=== PATIENT | male | born 1945 | race Caucasian/White ===

== ENCOUNTER 2019-10-29 06:38 | Inpatient (IN) | payer MEDICARE ==
[~2019-10-29] VITALS: Ht 165.1 cm; Wt 81.6 kg
[~2019-10-29 06:38] MED LIST: ASPIR 8181 MG PO; CARAFATE1 GM PO; CEFUROXIME500 MG PO; CLONAZEPAM1 MG PO; COLACE100 M1 PO; COUMADIN3 MG PO; COUMADIN5 MG PO; DONEPEZIL HCL5 MG PO; EXALGO16 MG PO; FLOMAX0.4 MG PO; FOLIC ACID1 MG PO; IPRAT-ALBUT 0.5-3 ML; KLONOPIN1 MG PO; LEVOTHYROXINE75 MCG PO; LIPITOR20 MG; LOSARTAN POTAS100 MG PO; METOPROLOL SUC100 MG PO; NEURONTIN400 MG PO; NEXIUM40 MG PO; OXYCONTIN10 MG PO; PERCOCET 10-321 EACH PO; PLAVIX75 MG PO; PREDNISONE1 MG; RAPAFLO8 MG PO; TRICOR145 MG PO; WELLBUTRIN100 MG PO; XARELTO20 MG PO; Z.0.AMBIEN CR12.5 MG PO; Z.0.JANUMET XR 50-1 PO; Z.0.NORCO 10-325 T1 PO; Z.0.PANTOPRAZOLE SO4 PO; Z.0.SYNTHROID200 MCG PO; Z.0.TRILIPIX135 MG PO; Z.0.ZOLOFT100 MG PO
--- OUTSIDE RECORDS SUMMARY | 2019-10-29 06:41 | XMS REPORT ---
Author Author [facility] Address Unknown Phone Unavailable Care Team Providers Care Hop Weigher Name Role Phone RUDY QUACHSILVINO Unavailable Unavailable Cristina GHOSH Unavailable Unavailable Problems This patient has no known problems. Allergies, Adverse Reactions, Alerts This patient has no known allergies or adverse reactions. Medications This patient has no known medications. Results Test Description Test Time Test Comments Text Results Atomic Results Result Comments RAD, CHEST, 1 VIEW, NON DEPT 2019-04-11 09:51:00 Reason for exam:->ppmShould this be performed at the bedside?->Yes FINAL REPORT Portable chest, 04/11/2019 There is been no change since 04/10/2019. The lungs remain clear and expanded. Heart is slightly enlarged. Pacing device is again noted with lead tips in the right atrium and ventricle. No significant osseous abnormalities are identified. Prior anterior metal plate cervical spine fusion is again noted. Signed: Sam Wright Verified Date/Time: 04/11/2019 09:51:44 Reading Location: [facility] Diagnostic Imaging Reading Room - [facility] 1.310.12 TROLYTES 2019-04-11 05:29:00 SODIUM (BEAKER) (test hyph=771) 138 meq/L 136-145 POTASSIUM (BEAKER) (test genr=057) 4.9 meq/L 3.5-5.1 CHLORIDE (BEAKER) (test kczr=399) 105 meq/L 98-107 CO2 (BEAKER) (test uxrr=379) 27 meq/L 22-29 HEMOGLOBIN AND [id number] 04:47:00* Test Item Value Reference Range Comments HEMOGLOBIN (BEAKER) (test vziv=294) 10.9 GM/DL 13.7-17.5 HEMATOCRIT (BEAKER) (test wgbt=506) 36.4 % 40.1-51.0 RAD, CHEST, 1 VIEW, NON [id number] 13:39:00Reason for exam:->chest painShould this be performed at the bedside?->YesFINAL REPORT RAD, CHEST, 1 VIEW, NON DEPT INDICATION: chest pain COMPARISON: January 30, 2017 FINDINGS: Portable frontal view of the chest. IMPRESSION: Support Lines: Cervical hardware, and pacer device are unchanged Lungs and pleura: Lungs are clear minimal retrocardiac atelectasis. No pneumothorax.Heart and mediastinum: Stable contours. Stable surgical changes.Additional findings: None. Signed: Gissell Royal MDReport Verified Date/Time: 04/10/2019 13:39:17 Reading Location: [address] Consult Reading Room [id number] 06:35:00* Test Item Value Reference Range Comments MAGNESIUM (BEAKER) (test iyyt=536) 1.5 mg/dL 1.6-2.6 BASIC METABOLIC [id number] 06:35:00* Test Item Value Reference Range Comments SODIUM (BEAKER) (test xphl=494) 136 meq/L 136-145 POTASSIUM (BEAKER) (test lack=909) 4.7 meq/L 3.5-5.1 CHLORIDE (BEAKER) (test xknh=786) 103 meq/L 98-107 CO2 (BEAKER) (test htph=020) 27 meq/L 22-29 BLOOD UREA NITROGEN (BEAKER) (test lzdn=186) 27 mg/dL 7-21 CREATININE (BEAKER) (test nhjj=418) 1.13 mg/dL 0.57-1.25 GLUCOSE RANDOM (BEAKER) (test klgs=081) 92 mg/dL 70-105 CALCIUM (BEAKER) (test hpkm=688) 8.8 mg/dL 8.4-10.2 EGFR (BEAKER) (test uehs=5059) 64 mL/min/1.73 sq m ESTIMATED GFR IS NOT ACCURATE CREATININE CLEARANCE IN PREDICTING GLOMERULAR FILTRATION RATE. ESTIMATED GFR IS NOT APPLICABLE FOR DIALYSIS PATIENTS. CBC (HEMOGRAM ONLY)2019-04-10 06:18:00* Test Item Value Reference Range Comments WHITE BLOOD CELL COUNT (BEAKER) (test tjml=007) 9.0 K/ L 3.5-10.5 RED BLOOD CELL COUNT (BEAKER) (test lgii=874) 3.67 M/ L 4.63-6.08 HEMOGLOBIN (BEAKER) (test hxxr=047) 10.4 GM/DL 13.7-17.5 HEMATOCRIT (BEAKER) (test frkb=694) 33.8 % 40.1-51.0 MEAN CORPUSCULAR VOLUME (BEAKER) (test cdve=817) 92.1 fL 79.0-92.2 MEAN CORPUSCULAR HEMOGLOBIN (BEAKER) (test rwzj=640) 28.3 pg 25.7-32.2 MEAN CORPUSCULAR HEMOGLOBIN CONC (BEAKER) (test nbsq=755) 30.8 GM/DL 32.3-36.5 RED CELL DISTRIBUTION WIDTH (BEAKER) (test pnnt=200) 13.7 % 11.6-14.4 PLATELET COUNT (BEAKER) (test ufdq=235) 188 K/CU MM 150-450 MEAN PLATELET VOLUME (BEAKER) (test qlzb=993) 11.6 fL 9.4-12.4 NUCLEATED RED BLOOD CELLS (BEAKER) (test cttq=035) 0 /100 WBC 0-0 CREATINE KINASE (CK), TOTAL AND [id number] 21:00:00* Test Item Value Reference Range Comments CREATINE KINASE TOTAL (BEAKER) (test dlvl=866) 125 U/L 29-200 CREATINE KINASE-MB (BEAKER) (test cnnf=256) 2.7 ng/mL 0.0-6.6 CREATINE KINASE-MB INDEX (BEAKER) (test kbwu=618) 2.2 % Effective 08/07/2014: CK-MB Reference Range ChangeNew: 0.0-6.6 Previous: 0.0- 4.9CK-MB Reference Range:<6.7 Normal6.7-10.0 Borderline>10.0 Abnormal TROPONIN [id number] 21:00:00* Test Item Value Reference Range Comments TROPONIN I (BEAKER) (test xhiw=640) < ng/mL 0.00-0.03 Effective 08/07/2014: Reference Range ChangeNew: 0.00-0.03 Previous 0.00-0.15T roponin I (TnI) levels must be interpreted in the context of the presenting symp toms and the clinical findings. Elevated TnI levels indicate myocardial damage, but are not specific for ischemic heart disease. Elevated TnI levels are seen in patients with other cardiac conditions (including myocarditis and congestive he art failure), and slight TnI elevations occur in patients with other conditions, including sepsis, renal failure, acidosis, acute neurological disease, and pers istent tachyarrhythmia.B-TYPE NATRIURETIC FACTOR (BNP)2017-01-30 20:59:00* Test Item Value Reference Range Comments B-TYPE NATRIURETIC PEPTIDE (BEAKER) (test ymre=103) 158 pg/mL 0-100 [id number] 20:53:00* Test Item Value Reference Range Comments MAGNESIUM (BEAKER) (test iada=685) 1.6 mg/dL 1.6-2.6 BASIC METABOLIC [id number] 20:53:00* Test Item Value Reference Range Comments SODIUM (BEAKER) (test igsz=942) 139 meq/L 136-145 POTASSIUM (BEAKER) (test dsrt=622) 4.7 meq/L 3.5-5.1 CHLORIDE (BEAKER) (test bbcz=419) 104 meq/L 98-107 CO2 (BEAKER) (test kkpi=455) 26 meq/L 22-29 BLOOD UREA NITROGEN (BEAKER) (test vhjs=685) 19 mg/dL 7-21 CREATININE (BEAKER) (test evxl=556) 0.94 mg/dL 0.57-1.25 GLUCOSE RANDOM (BEAKER) (test cigc=770) 103 mg/dL 70-105 CALCIUM (BEAKER) (test ptck=815) 8.8 mg/dL 8.4-10.2 EGFR (BEAKER) (test ciph=7995) 79 mL/min/1.73 sq m ESTIMATED GFR IS NOT ACCURATE CREATININE CLEARANCE IN PREDICTING GLOMERULAR FILTRATION RATE. ESTIMATED GFR IS NOT APPLICABLE FOR DIALYSIS PATIENTS. PT/[id number] 20:37:00* Test Item Value Reference Range Comments PROTIME (BEAKER) (test jdik=415) 13.5 seconds 11.7-14.7 INR (BEAKER) (test hugc=091) 1.0 <=5.9 PARTIAL THROMBOPLASTIN TIME (BEAKER) (test fxtv=652) 34.9 seconds 22.5-36.0 RECOMMENDED COUMADIN/WARFARIN INR THERAPY RANGESSTANDARD DOSE: 2.0 - 3.0 Inclu jae: PROPHYLAXIS for venous thrombosis, systemic embolization; TREATMENT for lisa ous thrombosis and/or pulmonary embolus.HIGH RISK: Target INR is 2.5-3.5 for pat ients with mechanical heart valves.CBC W/PLT COUNT & AUTO [id number] 20:29:00* Test Item Value Reference Range Comments WHITE BLOOD CELL COUNT (BEAKER) (test dnwu=062) 5.7 K/ L 4.0-10.0 RED BLOOD CELL COUNT (BEAKER) (test gctw=509) 3.11 M/ L 4.20-5.80 HEMOGLOBIN (BEAKER) (test cnht=085) 10.8 GM/DL 13.0-16.8 HEMATOCRIT (BEAKER) (test gevd=795) 32.5 % 40.0-50.0 MEAN CORPUSCULAR VOLUME (BEAKER) (test wtsl=378) 104.0 fL 82.0-98.0 MEAN CORPUSCULAR HEMOGLOBIN (BEAKER) (test anlb=470) 34.5 pg 27.0-33.0 MEAN CORPUSCULAR HEMOGLOBIN CONC (BEAKER) (test izhz=108) 33.1 GM/DL 32.0-36.0 RED CELL DISTRIBUTION WIDTH (BEAKER) (test vyij=571) 15.6 % 10.3-14.2 PLATELET COUNT (BEAKER) (test zred=704) 222 K/CU MM 150-430 MEAN PLATELET VOLUME (BEAKER) (test frwi=321) 7.6 fL 6.5-10.5 NUCLEATED RED BLOOD CELLS (BEAKER) (test tafu=225) 0 /100 WBC 0-0 NEUTROPHILS RELATIVE PERCENT (BEAKER) (test xfkl=497) 65 % LYMPHOCYTES RELATIVE PERCENT (BEAKER) (test clzl=583) 22 % MONOCYTES RELATIVE PERCENT (BEAKER) (test prkv=577) 8 % EOSINOPHILS RELATIVE PERCENT (BEAKER) (test dsji=077) 4 % BASOPHILS RELATIVE PERCENT (BEAKER) (test efjl=667) 1 % NEUTROPHILS ABSOLUTE COUNT (BEAKER) (test jlxe=858) 3.72 K/ L 1.80-8.00 LYMPHOCYTES ABSOLUTE COUNT (BEAKER) (test yukj=529) 1.22 K/ L 1.48-4.50 MONOCYTES ABSOLUTE COUNT (BEAKER) (test icgf=965) 0.46 K/ L 0.00-1.30 EOSINOPHILS ABSOLUTE COUNT (BEAKER) (test vpsv=651) 0.24 K/ L 0.00-0.50 BASOPHILS ABSOLUTE COUNT (BEAKER) (test dzad=821) 0.05 K/ L 0.00-0.20 0.00
--- NOTE | 2019-10-29 07:16 | NUR ---
CLIENT SEES DR. MADSEN FOR PAIN MANAGEMENT
--- NOTE | 2019-10-29 07:20 | NUR ---
CLIENT ADVISING THIS RN THAT STAFF ONLY HAVE ONE CHANCE TO GET AN IV. HE STATES CONTINUALLY I DONT WANT TO GET POKED MORE THAN ONCE.
[2019-10-29] MEDS ORDERED: KETOROLAC TROMETHAMINE 30 MG/ML VIAL IV STA (07:25)
[2019-10-29] MEDS ORDERED: ONDANSETRON HCL INJ 2MG/ML 2ML 2 MG/ML VIAL IV STA (07:25)
--- NOTE | 2019-10-29 07:48 | NUR ---
pt stated "you get one shot to get an IV and then no more" nurse attempted 26 to right upper forearm, pt started grunting and moaning and stated "take it out, it hurts too bad." IV withdrawn, no blood return, no bruising noted, no blood from insertion site. notified FELIPE JUNIOR. Addendum: 10/29/19 at 0754 by ELADIO pt stated "you get one shot to get an IV and then no more" nurse attempted 20g to right upper forearm, pt started grunting and moaning and stated "take it out, it hurts too bad." IV withdrawn, no blood return, no bruising noted, no blood from insertion site. notified FELIPE JUNIOR.
[2019-10-29] MEDS: SODIUM CHLORIDE 0.9% 1000ML 1,000 ML IV SCH ×3 (08:32→11:55)
--- NOTE | 2019-10-29 08:32 | NUR ---
20g to left forearm started by another nurse.
[2019-10-29 08:38] LABS: ALBUMIN 3.8 g/dL (3.5-5.0); ALBUMIN/GLOBULIN RATIO 1.3 (0.8-2.0); ANION GAP 25.3 mmol/L (8-16); CALCIUM 9.8 mg/dL (8.4-10.2); CREATININE, SERUM 1.36 mg/dL (0.72-1.25); POTASSIUM 4.3 mmol/L (3.5-5.1)
[2019-10-29 08:44] LABS: CREATINE KINASE MB 2.3 ng/mL (0-5.0)
[2019-10-29 09:20] LABS: BASOPHILS # (AUTO) 0.1 (0.0-0.1); BASOPHILS % 0.4 % (0.0-1.0); EOSINOPHILS # (AUTO) 0.1 (0.0-0.4); EOSINOPHILS % 0.2 % (0.0-6.0); HEMATOCRIT 44.1 % (38.2-49.6); HEMOGLOBIN 14.9 g/dL (14.0-18.0); LYMPHOCYTES % 8.1 % (18.0-39.1); MEAN CORPUSCULAR HEMOGLOBIN 29.2 pg (28-32); MEAN CORPUSCULAR HGB CONC 33.8 g/dL (31-35); MEAN CORPUSCULAR VOLUME 86.3 fL (81-99); MONOCYTES # (AUTO) 2.4 (0.2-0.8); MONOCYTES % 9.8 % (4.4-11.3); NEUTROPHILS # (AUTO) 19.8 (2.1-6.9); NEUTROPHILS % 80.9 % (38.7-80.0); PLATELET COUNT 221 x10e3/uL (140-360); RED BLOOD COUNT 5.11 x10e6/uL (4.3-5.7); RED CELL DISTRIBUTION WIDTH 15.3 % (11.7-14.4)
[2019-10-29] MEDS ORDERED: PIPER-TAZ 3.375 GM 50 ML IV ONE (09:45)
[2019-10-29] MEDS ORDERED: ONDANSETRON HCL INJ 2MG/ML 2ML 2 MG/ML VIAL IV NR (09:45)
[2019-10-29] MEDS ORDERED: MORPHINE SULFATE INJ 4 MG/ML INJ 1ML IV NR (09:45)
[2019-10-29 10:21] LABS: COLOR,URINE YELLOW (YELLOW)
[2019-10-29 10:22] LABS: CLARITY,URINE CLEAR (CLEAR); KETONES,URINE TRACE (NEGATIVE); LEUKOCYTE ESTERASE ,URINE NEGATIVE (NEGATIVE); NITRITE,URINE NEGATIVE (NEGATIVE); PROTEIN,URINE DIPSTICK 1+ (NEGATIVE)
[2019-10-29 10:23] LABS: BACTERIA,URINE RARE /HPF; BILIRUBIN,URINE NEGATIVE (NEGATIVE); EPITHELIAL CELLS,URINE FEW /LPF; URINE UROBILINOGEN 0.2 mg/dL (0.2 - 1)
[2019-10-29 10:39] LABS: AMPHETAMINES SCREEN,URINE POSITIVE (NEGATIVE); BENZODIAZEPINES SCREEN,URINE POSITIVE (NEGATIVE)
[2019-10-29 10:41] LABS: PHENCYCLIDINE SCREEN,URINE NEGATIVE (NEGATIVE)
[2019-10-29 10:42] LABS: OVAL FAT BODIES,URINE RARE
--- NOTE | 2019-10-29 11:10 | NUR ---
BLOOD CULTURES DRAWN AND IV ABT STARTED. PATIENT HAS POOR IV ACCESS AND LAB DRAWS ARE DIFFICULT. PATIENT HAS HAD MULTIPLE ATTEMPTS BY MULTIPLE STAFF TO GAIN IV ACCESS. IV IN LEFT FOREARM IS PATENT BUT DOES NOT HAVE BLOOD RETURN.
--- NOTE | 2019-10-29 11:28 | Diagnostic Imaging Report ---
EXAM: CT Abdomen and Pelvis WITH contrast INDICATION: Abdominal pain. COMPARISON: CT Abdomen/Pelvis 07/20/2009. TECHNIQUE: Abdomen and pelvis were scanned utilizing a multidetector helical scanner from the lung base to the pubic symphysis after administration of IV contrast. Coronal and sagittal reformations were obtained. Routine protocol was performed. Scan was performed when during portal venous phase. IV CONTRAST: 100 cc of Isovue-370 ORAL CONTRAST: Water COMPLICATIONS: None RADIATION DOSE: Total DLP: 694.7 mGy*cm Estimated effective dose: (DLP x 0.015 x size factor) mSv CTDIvol has been reviewed. It is below the limits set by the Radiation Protocol Committee (RPC). FINDINGS: LINES and TUBES: None. LOWER THORAX: Bronchial wall thickening in the left lower lobe with mild patchy/tree-in-bud opacities. Partially seen pacemaker leads. HEPATOBILIARY: Diffuse hepatic steatosis. No evidence of focal lesion. No biliary ductal dilation. GALLBLADDER: No radio-opaque stones or sludge. No wall thickening. SPLEEN: No splenomegaly. PANCREAS: No focal masses or ductal dilatation. ADRENALS: No evidence of adrenal nodule. KIDNEYS/URETERS: No evidence of hydronephrosis. There is a minimally complex 5.6 cm right lower pole renal cyst, which measures simple attenuation, and demonstrates a thin septation. The cyst previously measured 5.1 cm on 07/20/2009. GI TRACT: Small hiatal hernia. Status post partial colon resection with anastomoses within the right upper and bilateral lower abdomen. A 2.8 cm centrally hypodense peripherally hyperdense lesion is present superior to the adrenal gland and possibly arising as an exophytic lesion from the posterior wall of stomach at the fundus, versus abutting the stomach. No evidence of wall thickening or distension. Appendix is not visualized. PELVIC ORGANS/BLADDER: Limited evaluation secondary to streak artifact from bilateral total hip arthroplasty hardware. Prostate fiducial markers are noted. LYMPH NODES: No lymphadenopathy. VESSELS: Moderate to extensive atherosclerotic calcifications of the abdominal aorta and branch vessels. Partially seen left femoral artery bypass graft. The [place] left superficial femoral artery appears occluded. There is also occlusion of the right superficial femoral artery from the origin. The visualized left femoral bypass graft appears patent. The bilateral partially visualized proximal profunda femoral arteries appear patent. PERITONEUM / RETROPERITONEUM: No free air or fluid. BONES AND SOFT TISSUES: No acute osseous abnormality. Status post bilateral total hip arthroplasty, partially visualized. Degenerative changes of the visualized spine. Postsurgical changes of the midline lower anterior pelvic wall. CONCLUSION: No evidence of acute CT abnormality in the abdomen or pelvis. A 2.8 cm centrally hypodense, peripherally hyperdense lesion, possibly arising from the posterior aspect of the fundus. Suggest follow-up EGD. Moderate to extensive atherosclerotic disease. Left superficial femoral artery bypass graft appears patent proximally with occluded [place] proximal left superficial femoral artery. Occluded right proximal superficial femoral artery. Patent proximal bilateral profundal femoral arteries. Diffuse hepatic steatosis. Multiple colonic resections without evidence of bowel obstruction. Findings suggestive of mild aspiration in the left lower lobe. Signed by: Dr. Nilesh Carreon MD on 10/29/2019 11:25 AM
[2019-10-29] MEDS ORDERED: SODIUM CHLORIDE 0.9% 50ML 50 ML ONE (12:15)
[2019-10-29] MEDS ORDERED: VANCOMYCIN 1GM/NS 250 ML 250 ML IV SCH ×2 (12:15→15:00)
[2019-10-29] MEDS ORDERED: IOPAMIDOL 370 MG/ML 200 ML INFUS..BTL INJ ONE (12:15)
[2019-10-29] MEDS: SODIUM CHLORIDE 0.45% 1,000 ML IV SCH (12:43)
--- NOTE | 2019-10-29 12:48 | Diagnostic Imaging Report ---
EXAMINATION: CHEST SINGLE (PORTABLE) INDICATION: Chest pain. COMPARISON: CT abdomen/pelvis 10/29/2019. FINDINGS: TUBES and LINES: Left-sided pacemaker with leads overlying the right atrium and right ventricle. LUNGS: Low lung volumes. Patchy opacities in the bilateral lower lungs. Central vascular congestion. PLEURA: No pleural effusion or pneumothorax. HEART AND MEDIASTINUM: The cardiomediastinal silhouette is mildly enlarged. There are atherosclerotic calcifications within the aorta. BONES AND SOFT TISSUES: No acute osseous abnormality. Partially seen cervical spine fixation hardware. UPPER ABDOMEN: No free air under the diaphragm. IMPRESSION: Low lung volumes with patchy lower lung zone opacities, which may reflect aspiration given the same day abdominal CT findings. Suggest follow-up chest radiograph in 6-8 weeks to assess for resolution. Signed by: Dr. Nilesh Carreon MD on 10/29/2019 12:46 PM
[2019-10-29] MEDS ORDERED: MORPHINE SULFATE INJ 4 MG/ML INJ 1ML IV PRN ×3 (13:00→20:00)
[2019-10-29] MEDS ORDERED: PIPER-TAZ 3.375 GM 50 ML IV SCH (14:00)
[2019-10-29 14:24] LABS: CREATINE KINASE MB 2.9 ng/mL (0-5.0)
[2019-10-29] MEDS: CEFEPIME 1GM/NS 0.9% 50 ML 50 ML IV SCH ×2 (15:44→21:42)
[2019-10-29] MEDS: VANCOMYCIN 250MG/5ML ORAL SOLN PO SCH ×2 (18:15→23:06)
[2019-10-29 18:33] LABS: BASOPHILS # (AUTO) 0.1 (0.0-0.1); BASOPHILS % 0.4 % (0.0-1.0); EOSINOPHILS # (AUTO) 0.3 (0.0-0.4); EOSINOPHILS % 2.8 % (0.0-6.0); HEMOGLOBIN 12.1 g/dL (14.0-18.0); LYMPHOCYTES % 16.7 % (18.0-39.1); MEAN CORPUSCULAR HEMOGLOBIN 29.3 pg (28-32); MEAN CORPUSCULAR HGB CONC 31.8 g/dL (31-35); MONOCYTES # (AUTO) 1.3 (0.2-0.8); MONOCYTES % 11.1 % (4.4-11.3); NEUTROPHILS % 68.7 % (38.7-80.0); PLATELET COUNT 168 x10e3/uL (140-360); RED BLOOD COUNT 4.13 x10e6/uL (4.3-5.7); RED CELL DISTRIBUTION WIDTH 15.3 % (11.7-14.4)
[2019-10-29 19:07] LABS: CREATINE KINASE MB 4.1 ng/mL (0-5.0)
--- NOTE | 2019-10-29 19:49 | NUR ---
DR KARLEE SINGH FOR CRITICAL LACTIC
--- NOTE | 2019-10-29 20:19 | NUR ---
REPORTED CRITICAL LACTIC OF 2.[address] GUIDRY, RECIEVED ORDERS FOR FLAGYL IV 500MG Q 8 HOURS. MAY RESTART MORPHINE
[2019-10-29 21:00] VITALS: BP 163/75
[2019-10-29] MEDS: ONDANSETRON HCL INJ 2MG/ML 2ML 2 MG/ML VIAL IV PRN (21:17)
[2019-10-29 21:23] VITALS: BP 163/75
--- NOTE | 2019-10-29 21:34 | Consultation ---
DATE OF CONSULTATION: 10/29/2019 CHIEF COMPLAINT: This patient has colitis. HISTORY OF PRESENT ILLNESS: This patient is a 73-year-old white male, who had several abdominal surgeries starting with abdominal hernia, got infected with mesh, which was removed, got infection with Pseudomonas. He also had a colostomy, which was reversed back in August. He had abdominal pain and he was diagnosed with diverticulitis. He was in [place], discharged home with oral antibiotic after being there for 4 days. He is coming now with severe abdominal pain and diarrhea. The patient has multiple colon surgeries and he is admitted with abdominal pain and diarrhea. A CAT scan showed multiple colonic resections and no evidence of obstruction, but there is evidence of mild aspiration in the left lower lobe. The patient was admitted. He was started on vancomycin and Zosyn. I was asked to see him. LABORATORY DATA: White count 24.4 and hemoglobin 14.9. His lactic acid was 2.8. His sodium 138 and potassium 4.3 with a creatinine of 1.36. PAST MEDICAL HISTORY: As above. PAST SURGICAL HISTORY: As above. ALLERGIES: NKA. SOCIAL HISTORY: There is no smoking, drug abuse, or alcohol abuse. FAMILY HISTORY: Otherwise noncontributory. REVIEW OF SYSTEMS: At the present time, the patient is having fever, chills, abdominal pain, and diarrhea. Otherwise unremarkable. PHYSICAL EXAMINATION: GENERAL: Alert, oriented, does not seem to be in acute distress. VITAL SIGNS: Currently afebrile. HEENT: He is not icteric. NECK: Supple. CHEST: Clear. ABDOMEN: Soft. IMPRESSION: 1. Healthcare-associated pneumonia. 2. History of diverticulitis. 3. Concerned about Clostridium difficile. We will put the patient on cefepime, Flagyl with oral vancomycin. Obtain stools for Clostridium difficile. Recheck CBC. Recheck Chem panel. We will follow. MD VIPIN Lopez/MACKENZIE /[id number]
[2019-10-29] MEDS: MORPHINE SULFATE INJ 4 MG/ML INJ 1ML IV PRN (21:42)
[2019-10-29] MEDS ORDERED: CEFEPIME HCL 1 GM VIAL IV SCH (22:00)
--- NOTE | 2019-10-29 22:19 | NUR ---
blood drawn, sent sample to lab for lactic acid and cardiac marker.
[2019-10-29] MEDS: METRONIDAZOLE 500MG/NS 100ML 100 ML IV SCH (22:46)
[2019-10-30 00:03] VITALS: BP 159/78
[2019-10-30] MEDS: MORPHINE SULFATE INJ 4 MG/ML INJ 1ML IV PRN ×4 (02:22→19:52)
[2019-10-30 04:14] VITALS: BP 165/88
[2019-10-30] MEDS: SODIUM CHLORIDE 0.45% 1,000 ML IV SCH ×2 (04:46→18:12)
[2019-10-30] MEDS: CEFEPIME 1GM/NS 0.9% 50 ML 50 ML IV SCH ×3 (05:22→21:12)
[2019-10-30] MEDS: VANCOMYCIN 250MG/5ML ORAL SOLN PO SCH ×4 (06:22→23:09)
[2019-10-30] MEDS: METRONIDAZOLE 500MG/NS 100ML 100 ML IV SCH ×3 (06:22→21:50)
[2019-10-30 06:30] LABS: BASOPHILS # (AUTO) 0.1 (0.0-0.1); BASOPHILS % 0.8 % (0.0-1.0); EOSINOPHILS # (AUTO) 0.5 (0.0-0.4); EOSINOPHILS % 5.1 % (0.0-6.0); HEMATOCRIT 35.4 % (38.2-49.6); HEMOGLOBIN 11.8 g/dL (14.0-18.0); LYMPHOCYTES # (AUTO) 1.7 (1.0-3.2); MEAN CORPUSCULAR HEMOGLOBIN 29.5 pg (28-32); MEAN CORPUSCULAR HGB CONC 33.3 g/dL (31-35); MEAN CORPUSCULAR VOLUME 88.5 fL (81-99); MONOCYTES # (AUTO) 0.8 (0.2-0.8); MONOCYTES % 9.2 % (4.4-11.3); NEUTROPHILS # (AUTO) 6.1 (2.1-6.9); NEUTROPHILS % 66.6 % (38.7-80.0); PLATELET COUNT 159 x10e3/uL (140-360); RED CELL DISTRIBUTION WIDTH 15.1 % (11.7-14.4)
[2019-10-30 06:46] LABS: ALANINE AMINOTRANSFERASE 10 IU/L (0-55); ALBUMIN 3.1 g/dL (3.5-5.0); ALBUMIN/GLOBULIN RATIO 1.3 (0.8-2.0); ALKALINE PHOSPHATASE 64 IU/L (40-150); ANION GAP 14.7 mmol/L (8-16); BLOOD UREA NITROGEN 15 mg/dL (7-26); BUN/CREATININE RATIO 15 (6-25); CALCIUM 7.9 mg/dL (8.4-10.2); CARBON DIOXIDE 23 mmol/L (22-29); CHLORIDE 105 mmol/L (98-107); EST GLOMERULAR FILTRATION RATE > 60 ML/MIN (60-); GLUCOSE 95 mg/dL (74-118); POTASSIUM 3.7 mmol/L (3.5-5.1); SODIUM 139 mmol/L (136-145)
[2019-10-30 07:40] VITALS: BP 165/86
[2019-10-30] MEDS: ONDANSETRON HCL INJ 2MG/ML 2ML 2 MG/ML VIAL IV PRN ×3 (07:40→19:52)
[2019-10-30 07:41] VITALS: BP 165/86
[2019-10-30] MEDS: PANTOPRAZOLE 40 MG 10ML VIAL IV SCH (08:22)
[2019-10-30] MEDS ORDERED: LEVOTHYROXINE SODIUM PO SCH (09:00)
--- NOTE | 2019-10-30 09:42 | History and Physical ---
CHIEF COMPLAINT: 1. Abdominal pain. 2. Fever. 3. High white count. HISTORY OF PRESENT ILLNESS: This is a 73-year-old male with a past medical history of hypertension, hyperlipidemia, and chronic pain syndrome, was admitted couple of times in [facility] in [place] for pneumonia, referred with infection, and bronchitis. The patient came to the emergency room today at [facility] complaining of abdominal pain. CT shows no significant abnormality. High white count. The patient's lactic acid was high. The patient was started on IV vancomycin and IV Zosyn. ID consult was obtained in the ER. No cough. No shortness of breath. No chest pain. Has no nausea or vomiting. Has some burning on urination. No diarrhea. No hematochezia. No melena. ALLERGIES: NOT KNOWN. PAST MEDICAL HISTORY: 1. Hypertension. 2. Atherosclerotic heart disease. 3. Osteoarthritis. 4. Chronic pain syndrome. PAST SURGICAL HISTORY: Not available. SOCIAL HISTORY: The patient is , lives with his . HABITS: Denies smoking, but has drinking alcohol lately off and on. MEDICATIONS: List attached. REVIEW OF SYSTEMS: CONSTITUTIONAL: Generalized fatigue and weakness. HEENT: No diplopia or blurring of vision. CARDIOPULMONARY: No chest pain. No shortness of breath. ALIMENTARY SYSTEM: Mild nausea. No vomiting. Has abdominal pain. No diarrhea. No . GENITOURINARY SYSTEM: No dysuria or hematuria. MUSCULOSKELETAL: No joint pain. CENTRAL NERVOUS SYSTEM: No focal weakness. PHYSICAL EXAMINATION: GENERAL: This is a pleasant male, alert and oriented x3. VITAL SIGNS: Temperature 98.2, pulse 80, respiratory rate 18, and blood pressure 134/84. HEENT: Head is atraumatic and normocephalic. Pupils bilaterally equal to light. Extraocular muscles intact. NECK: Supple. No JVD. No carotid bruit. LUNGS: Clear to auscultation bilaterally. No added sounds. HEART: S1, S2. Regular rate and rhythm. No S3, no S4, murmur. ABDOMEN: Soft. Mild generalized tenderness. No guarding or rigidity. No rebound tenderness. EXTREMITIES: No pedal edema. Peripheral pluses +1. RAIL CAR OPERATOR: Grossly nonfocal. IMAGING: Chest x-ray is pending. CT of abdomen shows no stone in gallbladder or kidney. LABORATORY DATA: White count is high. Creatinine mildly elevated. ASSESSMENT: 1. Rule out early sepsis, rule out pneumonia, rule out aspiration pneumonia, rule out urosepsis, rule out Clostridium difficile colitis. 2. Atherosclerotic heart disease. 3. Hypertension. 4. Chronic pain syndrome. PLAN: Admit the patient to IMCU. IV fluid half-normal saline at 75 mL/h. IV Vanco and Zosyn given in ER. Change antibiotics to IV cefepime and p.o. Vanco and IV Flagyl by Dr. Garcia. Blood culture, urine culture, stool for C diff. CBC and CMP in the morning. Chest x-ray. Case discussed with the ER doctor, Juan and nursing staff. Case discussed with the patient and his , total condition and prognosis. Prognosis is guarded. MD MARLEE Elam/MACKENZIE /[id number]
[2019-10-30 11:38] VITALS: BP 143/76
[2019-10-30] MEDS: METOPROLOL SUCCINATE 25 MG TAB XL PO SCH (11:45)
[2019-10-30] MEDS: CLONAZEPAM 1 MG TAB PO SCH ×2 (11:45→18:11)
[2019-10-30] MEDS: ASPIRIN 81 MG CHEW TAB PO SCH (11:45)
[2019-10-30] MEDS: SERTRALINE HCL 100 MG TAB PO SCH (11:45)
[2019-10-30] MEDS: BUPROPION HCL 150 MG TABCR PO SCH (12:00)
[2019-10-30] MEDS ORDERED: VANCOMYCIN 1GM/NS 250 ML 250 ML IV SCH (12:00)
[2019-10-30 19:21] VITALS: BP 154/76
[2019-10-30] MEDS: TAMSULOSIN HCL 0.4 MG CAP PO SCH (20:49)
[2019-10-30] MEDS ORDERED: RIVAROXABAN 20 MG TABLET PO SCH (21:00)
[2019-10-31] VITALS (9 sets, daily range): BP systolic 143–172; BP diastolic 81–93
[2019-10-31] MEDS: MORPHINE SULFATE INJ 4 MG/ML INJ 1ML IV PRN ×2 (00:12→04:20)
[2019-10-31] MEDS: CEFEPIME 1GM/NS 0.9% 50 ML 50 ML IV SCH ×3 (05:52→21:22)
[2019-10-31 05:53] LABS: ANION GAP 12.3 mmol/L (8-16); BLOOD UREA NITROGEN 10 mg/dL (7-26); BUN/CREATININE RATIO 12 (6-25); CALCIUM 7.5 mg/dL (8.4-10.2); CARBON DIOXIDE 26 mmol/L (22-29); CHLORIDE 105 mmol/L (98-107); CREATININE, SERUM 0.85 mg/dL (0.72-1.25); EST GLOMERULAR FILTRATION RATE > 60 ML/MIN (60-); GLUCOSE 103 mg/dL (74-118); POTASSIUM 3.3 mmol/L (3.5-5.1); SODIUM 140 mmol/L (136-145)
[2019-10-31] MEDS: VANCOMYCIN 250MG/5ML ORAL SOLN PO SCH ×4 (06:11→23:37)
[2019-10-31] MEDS: LEVOTHYROXINE SODIUM 125 MCG TAB PO SCH (06:11)
[2019-10-31] MEDS: METRONIDAZOLE 500MG/NS 100ML 100 ML IV SCH ×3 (06:32→21:22)
[2019-10-31] MEDS: PANTOPRAZOLE 40 MG 10ML VIAL IV SCH (08:56)
[2019-10-31] MEDS: CLONAZEPAM 1 MG TAB PO SCH ×2 (08:57→16:15)
[2019-10-31] MEDS: BUPROPION HCL 150 MG TABCR PO SCH (08:57)
[2019-10-31] MEDS: METOPROLOL SUCCINATE 25 MG TAB XL PO SCH (08:57)
[2019-10-31] MEDS: ASPIRIN 81 MG CHEW TAB PO SCH (08:57)
[2019-10-31] MEDS: SERTRALINE HCL 100 MG TAB PO SCH (08:58)
[2019-10-31] MEDS: ONDANSETRON HCL INJ 2MG/ML 2ML 2 MG/ML VIAL IV PRN ×2 (09:11→19:04)
[2019-10-31] MEDS: SOD CHL 0.45%/POT CHL 20MEQ 1,000 ML IV SCH ×2 (09:52→22:39)
--- NOTE | 2019-10-31 10:13 | NUR ---
Called Dr Aguillon office, Denise took notification of new consult
--- NOTE | 2019-10-31 10:14 | NUR ---
Called and spoke with Dr Montez to notify of new consult.
[2019-10-31] MEDS: MORPHINE SULFATE 2 MG/ML SYR 1ML IV PRN ×2 (12:57→19:04)
--- NOTE | 2019-10-31 12:58 | Diagnostic Imaging Report ---
Chest, portable AP view History: Status post PICC placement Comparison: 10/29/2019 IMPRESSION: The tip of the right upper extremity PICC is in excellent position terminating in the mid SVC. Left subclavian pacemaker is in place. Unchanged patchy opacity at the bilateral lung bases. No sizable pleural effusion or pneumothorax. Signed by: Leif Tellez MD on 10/31/2019 12:55 PM
--- NOTE | 2019-10-31 12:59 | Progress Note ---
DATE: 10/31/2019 SUBJECTIVE: Mr. Costa is complaining of abdominal pain. His nausea has improved overall. Clinically, he is feeling better, but he is still having abdominal pain. There is also no IV access. The patient who has multiple abdominal surgeries, comes here with abdominal pain and nausea, vomiting, and elevated white count. Clinically, he seems to be getting better. His blood cultures are negative. His white count came down to 9.18, hemoglobin 11, hematocrit 35. Sodium 140, potassium 3.3, creatinine of 0.85. Chest x-ray on that showed there is no acute abnormality. CAT scan of abdomen and pelvis showed diffuse liver disease, multiple colonic resection with no evidence of small-bowel obstruction, but there is evidence of aspiration pneumonia. The patient who has been on antibiotic, metronidazole and vancomycin p.o. as well as cefepime. IMPRESSION: 1. Sepsis on admission, aspiration pneumonia. 2. Abdominal pain. 3. Perhaps ileus. 4. Stool for Clostridium difficile was not sent. I would recommend to treat him for 8 days with antibiotic. Discontinue oral vancomycin. Obtain KUB. Obtain amylase and lipase. We will follow clinically. MD VIPIN Lopez/MACKENZIE /[id number]
--- NOTE | 2019-10-31 15:21 | Diagnostic Imaging Report ---
Abdomen, one view on 2 radiographs Clinical indications: Abdominal pain Comparison: CT the abdomen and pelvis performed 10/29/2019 Impression: The bowel gas pattern is nonobstructive. No dilated loops of small or large bowel are identified. Patient is status post bilateral total hip arthroplasty. No acute osseous antibodies. Signed by: Leif Tellez MD on 10/31/2019 3:18 PM
[2019-10-31] MEDS: TAMSULOSIN HCL 0.4 MG CAP PO SCH (21:22)
[2019-11-01] MEDS: MORPHINE SULFATE 2 MG/ML SYR 1ML IV PRN ×2 (01:30→07:52)
[2019-11-01] MEDS: ONDANSETRON HCL INJ 2MG/ML 2ML 2 MG/ML VIAL IV PRN ×2 (01:30→05:36)
--- NOTE | 2019-11-01 03:27 | Consultation ---
DATE OF CONSULTATION: 10/31/2019 HISTORY OF PRESENT ILLNESS: This is a 73-year-old, who has history of chronic pain syndrome, hyperlipidemia, presented to the hospital because of abdominal pain mostly along with some nausea and vomiting. Patient has a little bit of diarrhea on admission, which seems to be resolved. His CAT scan on admission showed possible aspiration pneumonia. He did have a KUB today, which was negative. He apparently had a history of ulcer disease in the past. He has leukocytosis on admission with a WBC of 24,000. This seems to be resolved and he has mild anemia. PAST MEDICAL PROBLEMS: Significant for history of hypertension, history of , osteoarthritis, chronic pain syndrome. ALLERGIES: NALBUPHINE. SOCIAL HISTORY: No alcohol use. FAMILY HISTORY: Noncontributory. REVIEW OF SYSTEMS: Denies any chest pain or shortness of breath. Denies any dysphagia or odynophagia. Denies any dysuria, hematuria, or any kind of syncopal episodes. PHYSICAL EXAMINATION: GENERAL: Patient is awake, alert, appears to be stable, not in distress. VITAL SIGNS: Afebrile. Currently, stable vital signs. HEAD, EYES, EARS, NOSE, AND THROAT: Normocephalic and atraumatic. Sclerae are anicteric. NECK: Supple. HEART: Sounds regular. ABDOMEN: Soft. There is some tenderness mainly in the epigastric area. There is no rebound or mass. EXTREMITIES: No clubbing or cyanosis. LABORATORY VALUES: WBC of 9.18, hemoglobin 11.8, hematocrit 35.4. BUN is 10, creatinine of 0.5, potassium 3.3. CAT scan showed aspiration pneumonia. KUB is negative. IMPRESSION: 1. Abdominal pain, nausea, and vomiting. The patient has history of ulcer disease peptic ulcer disease. 2. Aspiration pneumonia. RECOMMENDATIONS: Continue current care at this point, and then we will proceed with EGD for evaluation tomorrow. Follow labs clinically. MD ARCHIE Garcia/MODL /[id number] cc: Torie Lassiter MD
[2019-11-01] MEDS: LEVOTHYROXINE SODIUM 125 MCG TAB PO SCH (05:12)
[2019-11-01] MEDS: VANCOMYCIN 250MG/5ML ORAL SOLN PO SCH ×4 (05:13→23:30)
[2019-11-01] MEDS: CEFEPIME 1GM/NS 0.9% 50 ML 50 ML IV SCH ×3 (05:36→22:12)
[2019-11-01] MEDS: METRONIDAZOLE 500MG/NS 100ML 100 ML IV SCH ×3 (05:36→22:12)
[2019-11-01 05:37] LABS: BASOPHILS % 0.6 % (0.0-1.0); EOSINOPHILS # (AUTO) 0.6 (0.0-0.4); EOSINOPHILS % 8.6 % (0.0-6.0); HEMOGLOBIN 11.1 g/dL (14.0-18.0); LYMPHOCYTES # (AUTO) 1.4 (1.0-3.2); LYMPHOCYTES % 20.5 % (18.0-39.1); MEAN CORPUSCULAR HEMOGLOBIN 29.9 pg (28-32); MEAN CORPUSCULAR HGB CONC 32.6 g/dL (31-35); MEAN CORPUSCULAR VOLUME 91.6 fL (81-99); MONOCYTES # (AUTO) 0.6 (0.2-0.8); MONOCYTES % 8.9 % (4.4-11.3); NEUTROPHILS # (AUTO) 4.2 (2.1-6.9); NEUTROPHILS % 61.1 % (38.7-80.0); PLATELET COUNT 120 x10e3/uL (140-360); RED BLOOD COUNT 3.71 x10e6/uL (4.3-5.7); RED CELL DISTRIBUTION WIDTH 14.9 % (11.7-14.4)
[2019-11-01 06:02] VITALS: BP 155/98
[2019-11-01 06:07] LABS: ALANINE AMINOTRANSFERASE 9 IU/L (0-55); ALBUMIN 2.8 g/dL (3.5-5.0); ALBUMIN/GLOBULIN RATIO 1.1 (0.8-2.0); ALKALINE PHOSPHATASE 64 IU/L (40-150); ANION GAP 14.1 mmol/L (8-16); BLOOD UREA NITROGEN 6 mg/dL (7-26); BUN/CREATININE RATIO 8 (6-25); CALCIUM 7.7 mg/dL (8.4-10.2); CARBON DIOXIDE 25 mmol/L (22-29); CHLORIDE 103 mmol/L (98-107); CREATININE, SERUM 0.73 mg/dL (0.72-1.25); EST GLOMERULAR FILTRATION RATE > 60 ML/MIN (60-); GLUCOSE 99 mg/dL (74-118); POTASSIUM 4.1 mmol/L (3.5-5.1); SODIUM 138 mmol/L (136-145)
[2019-11-01 07:12] VITALS: BP 159/81
[2019-11-01 07:13] VITALS: BP 159/81
[2019-11-01] MEDS: CLONAZEPAM 1 MG TAB PO SCH ×2 (07:51→16:44)
[2019-11-01] MEDS: METOPROLOL SUCCINATE 25 MG TAB XL PO SCH (07:51)
[2019-11-01] MEDS: ASPIRIN 81 MG CHEW TAB PO SCH (07:51)
[2019-11-01] MEDS: SERTRALINE HCL 100 MG TAB PO SCH (07:52)
[2019-11-01] MEDS: BUPROPION HCL 150 MG TABCR PO SCH (07:52)
[2019-11-01] MEDS: PANTOPRAZOLE 40 MG 10ML VIAL IV SCH (08:18)
[2019-11-01] MEDS: FENTANYL 12MCG/HR PATCH TD SCH ×2 (11:30→16:45)
--- NOTE | 2019-11-01 12:33 | NUR ---
pt off unit for egd
[2019-11-01] MEDS: SOD CHL 0.45%/POT CHL 20MEQ 1,000 ML IV SCH (12:40)
--- NOTE | 2019-11-01 12:45 | Progress Note ---
DATE: 11/01/2019 SUBJECTIVE: Mr. Costa is doing better. There is no new complaint. He is lying in bed comfortably. He had some abdominal pain and nausea. GI is going to do an EGD. REVIEW OF SYSTEMS: Otherwise unremarkable. PHYSICAL EXAMINATION: GENERAL: He is currently alert and oriented. Does not seem to be to be in acute distress. VITAL SIGNS: Stable, currently afebrile. HEENT: He is not icteric. NECK: Supple. CHEST: Clear. COR: S1 and S2. No S3, S4, or murmurs. ABDOMEN: Soft. Bowel sounds present. No tenderness. EXTREMITIES: No edema. SKIN: No rashes. LABORATORY DATA: White count is 6.94 and hemoglobin 11.1. IMPRESSION: 1. Pneumonia aspiration, on vancomycin and cefepime, to finish 5 days. 2. Abdominal pain. GI is planning to do EGD, multiple abdominal surgeries. 3. Chronic pain syndrome, stable otherwise from Infectious Disease point of view. MD VIPIN Lopez/[email or web address] /[id number]
[2019-11-01] MEDS: HYDROCODONE/APAP 7.5MG-325MG 1 EA TAB PO PRN ×2 (15:07→20:16)
[2019-11-01] MEDS: SUCRALFATE 1 GM TAB PO SCH ×2 (15:33→20:00)
[2019-11-01] MEDS: CALCIUM CARBONATE 500 MG CHEWABLE TABS PO SCH (16:44)
[2019-11-01] MEDS ORDERED: PROPOFOL IV EMULSION 10 MG/ML 20 ML VIAL ONE (17:52)
[2019-11-01] MEDS ORDERED: LIDOCAINE HCL 2% LOCAL INJ 5 ML SDV VIAL INJ ONE (17:52)
[2019-11-01] MEDS ORDERED: FENTANYL CITRATE/PF 100MCG/2 ML INJ ONE (18:43)
[2019-11-01 20:00] VITALS: BP 141/77
[2019-11-01] MEDS: TAMSULOSIN HCL 0.4 MG CAP PO SCH ×2 (20:00→21:00)
[2019-11-01 20:54] VITALS: BP 141/77
[2019-11-01] MEDS ORDERED: ALLOPURINOL100 MG PO (21:49)
[2019-11-02] VITALS: BP 160/100
[2019-11-02] MEDS: HYDROCODONE/APAP 7.5MG-325MG 1 EA TAB PO PRN ×3 (00:16→12:34)
[2019-11-02 04:00] VITALS: BP 128/92
[2019-11-02] MEDS: LEVOTHYROXINE SODIUM 125 MCG TAB PO SCH (05:38)
[2019-11-02] MEDS: VANCOMYCIN 250MG/5ML ORAL SOLN PO SCH ×2 (05:38→11:26)
[2019-11-02] MEDS: CEFEPIME 1GM/NS 0.9% 50 ML 50 ML IV SCH ×2 (05:38→14:00)
[2019-11-02] MEDS: METRONIDAZOLE 500MG/NS 100ML 100 ML IV SCH ×2 (05:38→14:00)
[2019-11-02 06:14] LABS: ANION GAP 16.5 mmol/L (8-16); BLOOD UREA NITROGEN 7 mg/dL (7-26); BUN/CREATININE RATIO 7 (6-25); CALCIUM 8.6 mg/dL (8.4-10.2); CARBON DIOXIDE 24 mmol/L (22-29); CHLORIDE 104 mmol/L (98-107); CREATININE, SERUM 1.05 mg/dL (0.72-1.25); EST GLOMERULAR FILTRATION RATE > 60 ML/MIN (60-); GLUCOSE 132 mg/dL (74-118); POTASSIUM 3.5 mmol/L (3.5-5.1); SODIUM 141 mmol/L (136-145)
[2019-11-02 07:04] VITALS: BP 148/88
[2019-11-02 07:05] VITALS: BP 148/88
[2019-11-02] MEDS: PANTOPRAZOLE 40 MG 10ML VIAL IV SCH (08:30)
[2019-11-02] MEDS: CALCIUM CARBONATE 500 MG CHEWABLE TABS PO SCH (08:30)
[2019-11-02] MEDS: BUPROPION HCL 150 MG TABCR PO SCH (08:30)
[2019-11-02] MEDS: CLONAZEPAM 1 MG TAB PO SCH (08:30)
[2019-11-02] MEDS: SERTRALINE HCL 100 MG TAB PO SCH (08:30)
[2019-11-02] MEDS: ASPIRIN 81 MG CHEW TAB PO SCH (08:30)
[2019-11-02] MEDS: METOPROLOL SUCCINATE 25 MG TAB XL PO SCH (08:30)
[2019-11-02] MEDS: SUCRALFATE 1 GM TAB PO SCH ×2 (08:30→11:26)
[2019-11-02] MEDS ORDERED: COLCRYS0.6 MG PO (10:51)
--- NOTE | 2019-11-02 11:22 | NUR ---
pt stable. reviewed dc instructions with pt, verbalized understanding. pending ride
[2019-11-02 11:27] VITALS: BP 139/89
[2019-11-02 15:30] VITALS: BP 166/85
--- NOTE | 2019-11-02 15:30 | NUR ---
RN assumed care of pt at 1200. In Report Tessa DE PAZ informed oncoming RN that pt already signed discharge paper work and discharge instructions given to pt by RN. Pt just waiting for to pickling solution maker pt at 1500. PICC line removed with gauze dressing placed over site and pressure held. Pt does not appear to be in any s/s of distress at this time. Pt discharged at 1540, Roberta Costa took pt home.
== END 2019-11-02 15:40 | disposition home or self-care (01) | DRG 871 ==
LOC: ER 06:38 → ERHOLD 11:53 → IMCU 20:37
PROVIDERS: ADMIT Internal Medicine; ATTEND Internal Medicine
PROC: 02HV33Z Insertion of Infusion Device into Superior Vena Cava, Percutaneous Approach (ICD-10-PCS; 2019-10-29)
PROC: 0DB78ZX Excision of Stomach, Pylorus, Via Natural or Artificial Opening Endoscopic, Diagnostic (ICD-10-PCS; 2019-11-01)
PROC: 0DB38ZX Excision of Lower Esophagus, Via Natural or Artificial Opening Endoscopic, Diagnostic (ICD-10-PCS; principal; 2019-11-01 12:47)
DX: A41.9 Sepsis, unspecified organism (principal); J69.0 Pneumonitis due to inhalation of food and vomit; N39.0 Urinary tract infection, site not specified; I10 Essential (primary) hypertension; K46.9 Unspecified abdominal hernia without obstruction or gangrene; K29.70 Gastritis, unspecified, without bleeding; G89.4 Chronic pain syndrome; E03.9 Hypothyroidism, unspecified; M10.9 Gout, unspecified; Y95 Nosocomial condition; D64.9 Anemia, unspecified; Z87.11 Personal history of peptic ulcer disease; I25.10 Atherosclerotic heart disease of native coronary artery without angina pectoris; K21.9 Gastro-esophageal reflux disease without esophagitis; E11.9 Type 2 diabetes mellitus without complications
CPT/HCPCS: 36415; 36569; 43239; 71045; 74018; 74177; 74470; 80048; 80053; 80307; 81001; 82550; 82553; 83605; 83690; 84484; 85025; 87040; 87086; 88305; 88312; 99284; J0692; J1885; J2001; J2270; J2405; J2543; J3010; J3370; J7030; Q9967

== ENCOUNTER → 2020-06-13 | Outpatient (CLI) | payer MEDICARE ==
[~2020-06-13] MED LIST changes: +ALLOPURINOL100 MG PO; +COLCRYS0.6 MG PO
--- NOTE | 2020-06-13 19:09 | Diagnostic Imaging Report ---
EXAM: CT Chest WITHOUT contrast INDICATION: Follow-up pneumonia seen on recent chest radiograph. COMPARISON: Multiple prior chest radiograph including most recent on 10/31/2019. TECHNIQUE: Chest was scanned utilizing a multidetector helical scanner from the lung apex through the level of the adrenal glands without administration of IV contrast. Absence of intravenous contrast decreases sensitivity for detection of lymphadenopathy and vascular pathology. Coronal and sagittal reformations were obtained. Routine protocol was performed. IV CONTRAST: None COMPLICATIONS: None RADIATION DOSE: Total DLP: 510.68 mGy*cm Estimated effective dose: (DLP x 0.014 x size factor) mSv CTDIvol has been reviewed. It is below the limits set by the Radiation Protocol Committee (RPC). Dose modulation, iterative reconstruction, and/or weight based adjustment of the mA/kV was utilized to reduce the radiation dose to as low as reasonably achievable. FINDINGS: LINES/ TUBES: Cardiac pacemaker overlies the left chest wall. Vascular: The ascending aorta is ectatic measuring up to 4.1 cm. The descending aorta has normal caliber measuring 2.8 cm. There is mild to moderate atherosclerotic calcification of the thoracic aorta extending into his neck branch vessels. The pulmonary trunk is dilated measuring up to 3.8 cm, suggestive of pulmonary arterial hypertension. LUNGS AND AIRWAYS: There are multifocal reticulonodular opacities in tree-in-bud configuration in the dependent aspect of the right upper lobe, right middle lobe, left upper and left lower lobes. Airways are normal. PLEURA: The pleural spaces are clear. HEART AND MEDIASTINUM: The thyroid gland is normal. No mediastinal, hilar or axillary lymphadenopathy. The heart is enlarged with aortic annular calcification and atherosclerotic calcification of the coronary vessels. There is no pericardial effusion. UPPER ABDOMEN: There is diverticulosis coli without evidence of active inflammation. There is a 3 cm lipoma in the gastric antrum. There is atherosclerotic calcification of the proximal abdominal aorta and its branch vessels. BONES: There are degenerative changes in the thoracic spine. There are anterior flowing osteophytes compatible with diffuse etiopathic sludge or hyperostosis. Partially imaged cervical spine hardware. SOFT TISSUES: The esophagus appears patulous with air-fluid levels. Soft tissues are otherwise unremarkable. IMPRESSION: 1. Multifocal reticulonodular opacities with tree-in-bud configuration in the dependent aspect of the right upper lobe, right middle lobe, left upper and left lower lobes. This constellation of findings likely reflect aspiration pneumonia and/or atypical mycobacterial pneumonia. 2. Patulous esophagus with air-fluid levels which can be seen with presbyesophagus. 3. Ascending aorta is ectatic measuring up to 4.1 cm. 4. Pulmonary trunk is dilated measuring up to 3.8 cm, suggestive of pulmonary arterial hypertension. 5. Cardiomegaly with aortic annular calcification and atherosclerotic ossification of the coronary vessels. 6. Diverticulosis coli without evidence of diverticulitis. 7. 3 cm lipoma in the gastric antrum. Signed by: Tiffany Delgado MD on 06/13/2020 7:06 PM
== END ==
LOC: CT 17:24
PROVIDERS: ATTEND Internal Medicine
DX: J18.9 Pneumonia, unspecified organism (principal); I51.7 Cardiomegaly; K57.90 Diverticulosis of intestine, part unspecified, without perforation or abscess without bleeding
CPT/HCPCS: 71250